=== PATIENT | male | born 1960 | race African-American/Black ===

== ENCOUNTER 2020-02-02 05:20 | Inpatient (IN) | payer OTHER, SELFPAY ==
[~2020-02-02] VITALS: Ht 182.9 cm; Wt 49.0 kg
[2020-02-02] MEDS ORDERED: NOREPINEPHRINE 4 MG/4 ML VIAL IV ONE (05:31)
[2020-02-02] MEDS ORDERED: SUCCINYLCHOLINE CHLORIDE 200 MG/10 ML VIAL IVP ONE ×2 (05:31→06:15)
[2020-02-02] MEDS ORDERED: ETOMIDATE 20 MG/10 ML VIAL IVP ONE ×2 (05:32→06:15)
[2020-02-02] MEDS ORDERED: PROPOFOL 1000 MG/100 ML PREMIX 100 ML IV ONE ×2 (05:35→06:15)
--- NOTE | 2020-02-02 05:35 | NUR ---
RIGHT 20 GAUGE PLACED
--- NOTE | 2020-02-02 05:35 | NUR ---
59 Y/O MALE [facility] . PER EMS UNABLE TO OBTAIN PULSE OX READING AND PT BP 66/32mmHG. OBSERVED PT GASPING FOR BREATH, MUMBLING SPEECH . RR EVEN AND LABORED. DIMINISHED LUNG SOUNDS THROUGHOUT. GCS 11. SKIN PALE , COLD TO TOUCH . OBSERVED WOUNDS ON BL HEELS , RT ANKLE AND SACRUM. OBSERVED JUGULAR DISTENTION. CAP REFIL > 3 SEC. PT POOR HISTORIAN. ERMD , RT AND EMT AT BEDSIDE. PMH: PER EMS CHF, CANCER & DM NKA
--- NOTE | 2020-02-02 05:48 | NUR ---
LEFT FOREARM 20 GAUGE PLACED
--- NOTE | 2020-02-02 05:48 | NUR ---
20GM OF ETOMIDATE GIVEN Addendum: 02/02/20 at 0611 by MEDDI 20 MG OF ETOMIDATE
--- NOTE | 2020-02-02 05:49 | NUR ---
100 MG SUCCS GIVEN
--- NOTE | 2020-02-02 05:50 | NUR ---
PATIENT INTUBATED 7.0; 23 CM AT THE LIP
--- NOTE | 2020-02-02 05:59 | NUR ---
SEE LEVOPHED IV SPEADSHEET FOR UPDATED VITAL SIGNS.
[2020-02-02] MEDS ORDERED: NOREPINEPHRINE 4 MG in DEXTROSE 5% 250 ML IV ONE (06:00)
--- NOTE | 2020-02-02 06:00 | NUR ---
LEVOPHED AT 2MCG GIVEN
--- NOTE | 2020-02-02 06:00 | NUR ---
PT REPOSITIONED FOR COMFORT. +CMS . NO ACUTE DISTRESS NOTED.
--- NOTE | 2020-02-02 06:00 | NUR ---
LEVOPHED AT 4 MCG INCREASED
--- NOTE | 2020-02-02 06:10 | NUR ---
LEVOPHED AT 6MCG INCREASED
--- NOTE | 2020-02-02 06:12 | NUR ---
OG TUBE PLACED
[2020-02-02] MEDS ORDERED: PIPERACILLIN/TAZOBACTAM 3.375 GM in DEXTROSE 5% 50 ML IV ONE (06:15)
[2020-02-02] MEDS ORDERED: AZITHROMYCIN 500 MG in DEXTROSE 5% 250 ML IV ONE (06:15)
[2020-02-02] MEDS ORDERED: VANCOMYCIN PER PHARMACY MC PRN ×2 (06:15→22:35)
[2020-02-02] MEDS ORDERED: VANCOMYCIN 1GM/DEXT 5% PREMIX 200 ML IV ONE (06:15)
--- NOTE | 2020-02-02 06:30 | NUR ---
# 14 FR Becerra catheter with 10 ml utilizing sterile technique. Immediate return of 20 ml YELLOW urine noted. Bedside drainage bag placed below level of bladder. Urine sample collected and sent to lab. Pt tolerated procedure WELL.
--- NOTE | 2020-02-02 06:30 | NUR ---
URINE SAMPLE COLLECTED FROM GILLIS BAG AND HANDED TO LAB.
[2020-02-02] MEDS ORDERED: CALCIUM GLUCONATE 10% 1000 MG/10 ML VIAL IVP ONE (06:35)
[2020-02-02 06:42] VITALS: BP 88/59
--- NOTE | 2020-02-02 06:42 | NUR ---
CALLED TO ER FOR A ROUND. PT WAS SUCCESSFULLY INTUBATED WITH 7.0 AND SECURED WITH ANCHOR-FAST @23CM AT LIP BY ANGELINA SEPULVEDA. PER DR. VALLADARES, PLACED PT ON VENT SETTINGS AC/VC 20, 450, +8, 100%. PEAK PREASURE 31 AND PLT 25 cmH20. PER KEREN ABG IN 30MINS. REPORT GIVEN TO AM SHIFT.
--- NOTE | 2020-02-02 06:42 | NUR ---
REC'D PT ON PB840 VENT SETTINGS AC 20 VT450 P8 FIO2 100% ALARMS ON AND AUDIBLE AND BVM AT HOB VENT IS PLUGGED INTO RED OUTLET B\S ARE DIMINISHED BILATERALLY, SXN PT SMALL AMT OF CREAM COLOR SECRETIONS, PT IS ORALLY INTUBATED WITH 7.0 ETT SECURED AT 23 CM PT IS NOT AWAKE AT THIS TIME,
[2020-02-02] MEDS ORDERED: NACL 0.9% 1,000 ML IV ONE (06:45)
--- NOTE | 2020-02-02 07:05 | NUR ---
DONNIE COVID, NOVEL COVID , FLU AND RSV SWABS COLLECTED AND HANDED TO LAB.
--- NOTE | 2020-02-02 07:15 | NUR ---
LEVOPHED INCREASED TO 10 MCG/MIN
--- NOTE | 2020-02-02 07:21 | NUR ---
LAB AT BEDSIDE. PER RENTAL SALES REPRESENTATIVE , UNABLE TO DRAW LABS DUE TO SLOW FLOW AT THIS TIME. WILL TRY AGAIN.
[2020-02-02] MEDS ORDERED: DEXTROSE 50% 50 ML SYR IVP STA ×2 (07:24→07:48)
[2020-02-02] MEDS ORDERED: SODIUM BICARBONATE 8.4% PFS 50 MEQ/50 ML SYR IVP STA ×2 (07:24→08:34)
[2020-02-02] MEDS ORDERED: INSULIN REGULAR, HUMAN 100 UNIT/ML VIAL IVP STA (07:24)
[2020-02-02 07:42] LABS: HEMATOCRIT 33.5 % (36-52); HEMOGLOBIN 10.4 g/dL (12.0-18.0); MEAN CORPUSCULAR HGB CONC 31 g/dL (33-37); RED BLOOD CELL COUNT(AUTO) 3.95 MIL/uL (4.20-6.10)
[2020-02-02 07:44] LABS: MEAN CORPUSCULAR HEMOGLOBIN 26 pg (27-31); MEAN CORPUSCULAR VOLUME 84.8 fL (80-94); PLATELET COUNT (AUTO) 141 K/uL (140-450); RED CELL DISTRIBUTION WIDTH 15.7 % (11.6-13.7); WHITE BLOOD COUNT (AUTO) 6.5 K/uL (4.8-10.8)
[2020-02-02] MEDS ORDERED: SODIUM BICARBONATE 8.4% PFS 50 MEQ/50 ML SYR IVP ONE ×2 (07:45→13:55)
[2020-02-02] MEDS ORDERED: CALCIUM CHLORIDE 10% 1,000 MG in NACL 0.9% 100 ML IV ONE (07:45)
[2020-02-02] MEDS ORDERED: MIDAZOLAM MDV 50 MG in NACL 0.9% 40 ML IV PRN (07:45)
--- NOTE | 2020-02-02 07:54 | NUR ---
ABG DRAWN ON LB WITHOUT INCIDENT AND RESULTS WERE GIVEN TO AND CHANGES MADE TO VENT RR TO 22 AND FIO2 TO 50%
[2020-02-02 07:55] LABS: APPEARANCE,URINE CLOUDY (CLEAR); BILIRUBIN,URINE NEGATIVE (NEGATIVE); BLOOD, URINE 2+ (NEGATIVE); COLOR,URINE DARK YELLOW (YELLOW); LEUKOCYTE ESTERASE ,URINE NEGATIVE (NEGATIVE); NITRITE, URINE NEGATIVE (NEGATIVE); UGLUCOSE NEGATIVE (NEGATIVE)
[2020-02-02] MEDS ORDERED: MIDAZOLAM MDV 100 MG in NACL 0.9% 80 ML IV PRN (08:00)
--- NOTE | 2020-02-02 08:00 | NUR ---
PT REPOSITIONED FOR COMFORT. +CMS . NO ACUTE DISTRESS NOTED.
[2020-02-02] MEDS ORDERED: ASPIRIN 81 MG TAB.CHEW NG STA (08:12)
--- NOTE | 2020-02-02 08:15 | NUR ---
VERSED DRIP INITIATED AT 1MG/HR
[2020-02-02] MEDS ORDERED: CRUSHER, PILL MC ONE (08:16)
[2020-02-02 08:19] LABS: LYMPHOCYTES % (MANUAL) 4 % (20-46); MONOCYTES % (MANUAL) 7 % (5-12)
[2020-02-02 08:27] LABS: RSV NEGATIVE (NEGATIVE)
[2020-02-02 08:30] LABS: ALBUMIN 3.2 g/dL (3.4-5.0); ANION GAP 30.2 (8-16); CARBON DIOXIDE 17.9 mmol/L (21-32); CREATININE 3.2 mg/dL (0.6-1.3); TOTAL BILIRUBIN 2.5 mg/dL (0.0-1.0)
--- NOTE | 2020-02-02 08:30 | NUR ---
INCREASED VERSED DRIP TO 2MG/HR , RAAS -2.
[2020-02-02 08:34] LABS: POTASSIUM 8.1 mmol/L (3.5-5.1)
[2020-02-02 08:37] LABS: PHOSPHORUS 7.5 mg/dL (2.5-4.9)
[2020-02-02 08:38] LABS: SALICYLATE < 2.8 mg/dL (2.8-20.0)
[2020-02-02 08:52] LABS: LACTATE DEHYDROGENASE 673 U/L (85-227)
--- NOTE | 2020-02-02 08:58 | NUR ---
PER DAVID DODSON - DO NOT ADMINISTER ORDERED ANTIBIOTICS AT THIS TIME.
--- NOTE | 2020-02-02 08:58 | NUR ---
PER ERMD - HOLD OFF OF CT SCANS AT THIS TIME.
--- NOTE | 2020-02-02 09:00 | NUR ---
WOUND CARE AND PICTURES DOCUMENTED AT THIS TIME. PT TOLERATED PROCEDURE WELL.
--- NOTE | 2020-02-02 09:00 | NUR ---
INCREASED VERSED DRIP TO 3MG/HR , RAAS -3.
[2020-02-02 09:04] LABS: D-DIMER 1230 ng/ml (0-400)
[2020-02-02 09:05] LABS: ACETAMINOPHEN < 0.5 ug/ml (10-30)
[2020-02-02 09:09] LABS: C-REACTIVE PROTEIN QUANT 4.9 mg/dL (0.0-0.9)
[2020-02-02 09:19] LABS: RBC,URINE 11-20 (MOD) /HPF (0-5); WBC,URINE 0-5 /HPF (0-5)
--- NOTE | 2020-02-02 10:00 | NUR ---
PT REPOSITIONED FOR COMFORT. +CMS . NO ACUTE DISTRESS NOTED.
[2020-02-02 10:07] LABS: FIBRINOGEN 228 mg/dL (200-400)
[2020-02-02] MEDS ORDERED: ALBUTEROL SULFATE/IPRATROPIU 3 ML SOL IH PRN ×2 (10:20)
[2020-02-02] MEDS ORDERED: NACL 0.9% 1,000 ML IV SCH (10:20)
[2020-02-02] MEDS ORDERED: ACETAMINOPHEN 325 MG TAB PO PRN (10:20)
[2020-02-02] MEDS ORDERED: HYDROcodone/APAP 7.5/325 MG 1 TAB PO PRN (10:20)
[2020-02-02] MEDS ORDERED: ONDANSETRON 4 MG/2 ML VIAL IM/IVP PRN (10:20)
[2020-02-02] MEDS ORDERED: DOCUSATE SODIUM 100 MG GELCAP PO PRN (10:20)
--- NOTE | 2020-02-02 10:30 | NUR ---
CENTRAL LINE INSERTION ADMINISTERED BY DR. DODSON. PROCEDURE TOLERATED WELL BY PT.
[2020-02-02 10:50] VITALS: BP 100/65
--- NOTE | 2020-02-02 10:53 | NUR ---
ASSUMED CARE OF PATIENT FROM ANTONIO QUICK.
[2020-02-02] MEDS: ALBUTEROL SULFATE/IPRATROPIU 3 ML SOL IH SCH ×3 (11:00→23:00)
--- NOTE | 2020-02-02 11:00 | NUR ---
REPORT GIVEN TO ANTONIO LLAMAS FOR CONTINUATION OF CARE.
[2020-02-02] MEDS ORDERED: POTASSIUM CHLORIDE 20% 40 MEQ/15 ML UDC PO PRN (11:10)
--- NOTE | 2020-02-02 11:11 | NUR ---
Dr. Connell is evaluating the patient.
[2020-02-02 11:25] LABS: BARBITURATE, URINE NEGATIVE ng/ml (NEG <=200); BENZODIAZEPINE, URINE NEGATIVE ng/mL (NEG <=200); CANNABINOID, URINE NEGATIVE ng/mL (NEG <=50); COCAINE, URINE NEGATIVE ng/mL (NEG <=300); PHENCYCLIDINE SCREEN,URINE NEGATIVE ng/mL (NEG <=25)
[2020-02-02 11:26] LABS: OPIATE, URINE NEGATIVE ng/mL (NEG <=2000)
[2020-02-02] MEDS ORDERED: ALBUTEROL SULFATE/IPRATROPIU 3 ML SOL IH SCH (13:00)
--- NOTE | 2020-02-02 13:24 | NUR ---
The patient's brother, Tate Florentino, should be contacted at from 02/02/2020 1830 until further notice for any additional needs.
[2020-02-02 13:34] LABS: PROTHROMBIN TIME > 120.0 secs (10.8-13.4)
[2020-02-02] MEDS ORDERED: CALCIUM CHLORIDE 10% 100 MG/ML SYR IVP ONE (13:55)
[2020-02-02 15:33] VITALS: BP 97/72
[2020-02-02] MEDS ORDERED: SODIUM ZIRCONIUM CYCLOSILICATE 10 GM POWD.PACK NG SCH (15:45)
--- NOTE | 2020-02-02 16:00 | NUR ---
DIALYSIS NURSE AT BEDSIDE
[2020-02-02] MEDS: DEXT 5% /NACL 0.9% 1,000 ML IV SCH (16:30)
--- NOTE | 2020-02-02 16:47 | NUR ---
REPORT RECEIVED FROM MURIEL ALVAREZ FOR CONTINUITY OF CARE
--- NOTE | 2020-02-02 16:48 | NUR ---
PT RECEIVING DIALYSIS AT THIS TIME. VSS.
[2020-02-02] MEDS: BLOOD GLUCOSE MONITORING 1 DEV DEV FS SCH (17:07)
--- NOTE | 2020-02-02 17:52 | NUR ---
1600ML TAKEN OUT DURING DIALYSIS
--- NOTE | 2020-02-02 18:00 | NUR ---
MD SERNA PAGED REGARDING PATIENTS RYTHM, PATIENT IS EXPERIENCING VTACH AT THIS TIME
--- NOTE | 2020-02-02 18:50 | NUR ---
PT IN UNSTABLE CONDITION, CRASH CART AT BEDSIDE, PT CONNECTED TO DEFIB.
--- NOTE | 2020-02-02 18:51 | NUR ---
ADVISED TO CONTACT MD CHAVARRIA, EKG PERFORMED AND SENT TO MD CHAVARRIA. PULSES PALPABLE +4.
[2020-02-02 18:59] LABS: CHOL/HDL RATIO 1.5 (1-4.5); FREE T4 (FREE THYROXINE) 1.54 ng/dL (0.76-1.46); MAGNESIUM 1.8 mg/dL (1.8-2.4); PHOSPHORUS 6.5 mg/dL (2.5-4.9); THYROID STIMULATING HORMONE 3.78 uIU/mL (0.34-3.74)
[2020-02-02] MEDS ORDERED: BUDESONIDE 0.5 MG/2 ML NEBU INH SCH (19:30)
--- NOTE | 2020-02-02 19:30 | NUR ---
RECEIVED REPORT FROM ANTONIO WHITE FOR CONTINUATION OF CARE.
--- NOTE | 2020-02-02 19:44 | NUR ---
PT IS CONNECTED TO THE SUGARCANE PLANTER. PT IS CONNECTED TO THE SUGARCANE PLANTER. ADMIT MD AWARE OF PT SUSTAINING VTACH. MARINE ENGINE DRIVER HAS BEEN MADE AWARE. WILL CONTINUE TO MONITOR.
--- NOTE | 2020-02-02 19:46 | NUR ---
CALLED THE PERSON TO NOTIFY IN THE PTS [id number] PERRY [phone]. LEFT A MESSAGE REQUESTING THAT SHE CALL [facility] ER BACK.
[2020-02-02 20:30] VITALS: BP 93/69
--- NOTE | 2020-02-02 20:45 | NUR ---
PT IS CONNECTED TO THE ROUTE INSPECTOR. PT IS CONNECTED TO THE ROUTE INSPECTOR. ADMIT MD AWARE OF PT SUSTAINING VTACH. PT IS CONNECTED TO THE DEFIBRILLATOR PADS AND THE CRASH CART IS AT BEDSIDE. WILL CONTINUE TO MONITOR.
--- NOTE | 2020-02-02 21:45 | NUR ---
PT IS CONNECTED TO THE BASEBALL COACH. ADMIT MD AWARE OF PT SUSTAINING VTACH. PT IS CONNECTED TO THE DEFIBRILLATOR PADS AND THE CRASH CART IS AT BEDSIDE. BED IS LOCKED AND IN LOWEST POSITION. SIDE RAILSX1. FLUIDS RUNNING PER MD ORDERS. WILL CONTINUE TO MONITOR.
--- NOTE | 2020-02-02 22:45 | NUR ---
PT IS CONNECTED TO THE NUT PROCESS HELPER. ADMIT MD AWARE OF PT SUSTAINING VTACH. PT IS CONNECTED TO THE DEFIBRILLATOR PADS AND THE CRASH CART IS AT BEDSIDE. BED IS LOCKED AND IN LOWEST POSITION. SIDE RAILSX1. FLUIDS RUNNING PER MD ORDERS. WILL CONTINUE TO MONITOR.
[2020-02-02] MEDS ORDERED: VANCOMYCIN 1GM/DEXT 5% PREMIX 200 ML IV SCH (22:50)
[2020-02-02 23:25] VITALS: BP 93/65
--- NOTE | 2020-02-02 23:45 | NUR ---
PT IS CONNECTED TO THE ROLL UP GUIDER OPERATOR. ADMIT MD AWARE OF PT SUSTAINING VTACH. PT IS CONNECTED TO THE DEFIBRILLATOR PADS AND THE CRASH CART IS AT BEDSIDE. BED IS LOCKED AND IN LOWEST POSITION. SIDE RAILSX1. FLUIDS RUNNING PER MD ORDERS. WILL CONTINUE TO MONITOR.
[2020-02-03] VITALS (8 sets, daily range): BP systolic 75–96; BP diastolic 52–68
--- NOTE | 2020-02-03 00:45 | NUR ---
PT IS CONNECTED TO THE PERIOPERATIVE NURSE. ADMIT MD AWARE OF PT SUSTAINING VTACH. PT IS CONNECTED TO THE DEFIBRILLATOR PADS AND THE CRASH CART IS AT BEDSIDE. PT IS CONNECTED TO THE MECHANICAL VENTILATOR. SAO2@100%. BED IS LOCKED AND IN LOWEST POSITION. SIDE RAILSX1. FLUIDS RUNNING PER MD ORDERS. WILL CONTINUE TO MONITOR.
[2020-02-03] MEDS ORDERED: NOREPINEPHRINE 4 MG/4 ML VIAL IV ONE ×4 (01:13→20:29)
--- NOTE | 2020-02-03 01:45 | NUR ---
PT IS CONNECTED TO THE AIRPLANE FLIGHT ATTENDANT. ADMIT MD AWARE OF PT SUSTAINING VTACH. PT IS CONNECTED TO THE DEFIBRILLATOR PADS AND THE CRASH CART IS AT BEDSIDE. PT IS CONNECTED TO THE MECHANICAL VENTILATOR. SAO2@100%. BED IS LOCKED AND IN LOWEST POSITION. SIDE RAILSX1. FLUIDS RUNNING PER MD ORDERS. WILL CONTINUE TO MONITOR.
[2020-02-03] MEDS: DEXTROSE 50% 50 ML SYR IVP PRN ×3 (01:48→16:27)
[2020-02-03] MEDS: BLOOD GLUCOSE MONITORING 1 DEV DEV FS SCH ×5 (02:18→21:00)
--- NOTE | 2020-02-03 02:45 | NUR ---
PT IS CONNECTED TO THE ENTRY EXAMINER. ADMIT MD AWARE OF PT SUSTAINING VTACH. PT IS CONNECTED TO THE DEFIBRILLATOR PADS AND THE CRASH CART IS AT BEDSIDE. PT IS CONNECTED TO THE MECHANICAL VENTILATOR. SAO2@100%. BED IS LOCKED AND IN LOWEST POSITION. SIDE RAILSX1. FLUIDS RUNNING PER MD ORDERS. WILL CONTINUE TO MONITOR.
[2020-02-03] MEDS ORDERED: PHENYLEPHRINE 10 MG in NACL 0.9% 250 ML IV PRN (02:50)
[2020-02-03] MEDS ORDERED: PHENYLEPHRINE 10 MG/ML VIAL ONE ×9 (02:57→22:22)
[2020-02-03] MEDS: ALBUTEROL SULFATE/IPRATROPIU 3 ML SOL IH SCH ×6 (03:00→23:18)
--- NOTE | 2020-02-03 03:30 | NUR ---
RECIEVED REPORT FROM ANTONIO JUDD.
--- NOTE | 2020-02-03 03:30 | NUR ---
AARON SYNEPHRINE TIRTRATED TO 100MCG/MIN.
--- NOTE | 2020-02-03 03:30 | NUR ---
PT IS CONNECTED TO THE PRINTER HELPER. ADMIT MD AWARE OF PT SUSTAINING VTACH. PT IS CONNECTED TO THE DEFIBRILLATOR PADS AND THE CRASH CART IS AT BEDSIDE. PT IS CONNECTED TO THE MECHANICAL VENTILATOR. SAO2@100%. BED IS LOCKED AND IN LOWEST POSITION. SIDE RAILSX1. FLUIDS RUNNING PER MD ORDERS. WILL CONTINUE TO MONITOR.
[2020-02-03] MEDS: PHENYLEPHRINE 10 MG in NACL 0.9% 250 ML IV PRN ×3 (03:48→07:58)
--- NOTE | 2020-02-03 04:00 | NUR ---
AARON SYNEPHRINE TITRTAED TO 150MCG/MIN. BP STILL LOW AT 74/50.
[2020-02-03] MEDS ORDERED: PIPERACILLIN/TAZOBACTAM 2.25 GM VIAL IV ONE ×3 (04:12→20:47)
--- NOTE | 2020-02-03 04:30 | NUR ---
PT MAX OUT OF AARON SYNEPHRINE.
[2020-02-03] MEDS: PIPERACILLIN/TAZOBACTAM 2.25 GM in DEXTROSE 5% 50 ML IV SCH ×4 (05:00→21:00)
--- NOTE | 2020-02-03 05:30 | NUR ---
PT DOSE OF ZOYSN FROM 223 BARELY ADMINISTERED
[2020-02-03] MEDS ORDERED: VANCOMYCIN 1,000 MG VIAL ONE (06:03)
--- NOTE | 2020-02-03 06:51 | NUR ---
PATIENT HAS BEEN SCREENED AND CATEGORIZED HIGH NUTRITION RISK. PATIENT WILL BE SEEN WITHIN 1-2 DAYS OF ADMISSION. 02/03/20 - 02/04/20 SAMSON GUO MBA, RD
[2020-02-03] MEDS: BUDESONIDE 0.25 MG/2 ML NEBU INH SCH ×2 (07:30→20:00)
--- NOTE | 2020-02-03 07:30 | NUR ---
RECIEVED REPORT FROM ANTONIO PRICE.
[2020-02-03] MEDS: NOREPINEPHRINE 8 MG in DEXTROSE 5% 250 ML IV PRN (07:57)
--- NOTE | 2020-02-03 08:00 | NUR ---
BREATHING TX OMITTED DUE TO HIGHER CLINICAL PRIORITY, IN CODE BLUE.
--- NOTE | 2020-02-03 08:00 | NUR ---
PT RAAS -3. SEE TITRATION SPREADSHEET. PT MAXED ON NEOSYNEPHRINE AND LEVOPHED.
[2020-02-03 09:12] LABS: BASOPHILS % (AUTO) 0.2 % (0.0-2.0); HEMATOCRIT 31.8 % (36-52); LYMPHOCYTES # (AUTO) 0.1 K/uL (2.0-11.5); MEAN CORPUSCULAR HEMOGLOBIN 26 pg (27-31); MEAN CORPUSCULAR HGB CONC 31 g/dL (33-37); MEAN CORPUSCULAR VOLUME 82.3 fL (80-94); MONOCYTES # (AUTO) 0.3 K/uL (0.8-1.0); MONOCYTES % (AUTO) 2.9 % (1.7-9.3); NEUTROPHILS # (AUTO) 11.5 K/uL (1.8-7.7); NEUTROPHILS % (AUTO) 95.9 % (42.2-75.2); PLATELET COUNT (AUTO) 99 K/uL (140-450); RED BLOOD CELL COUNT(AUTO) 3.86 MIL/uL (4.20-6.10); RED CELL DISTRIBUTION WIDTH 15.7 % (11.6-13.7)
[2020-02-03 09:35] LABS: ANION GAP 17.1 (8-16); CARBON DIOXIDE 25.5 mmol/L (21-32); CREATININE 3.5 mg/dL (0.6-1.3); POTASSIUM 4.6 mmol/L (3.5-5.1)
--- NOTE | 2020-02-03 09:43 | NUR ---
CRITICAL LABS ENDORSED TO ANTONIO ANDERSON
[2020-02-03 09:46] LABS: PHOSPHORUS 4.9 mg/dL (2.5-4.9)
--- NOTE | 2020-02-03 10:00 | NUR ---
PT POSITIONED FOR COMFORT. TALENT DEVELOPMENT DIRECTOR/ PULSE OX IN PLACE. CRASH CART AT BEDSIDE FROM PREVIOUS CODE, DEFIB PLADS IN PLACE. EQUAL CHEST RISE AND FALL. BED LOCKED AND IN LOWEST POSITION. SIDE RAILS X2.
[2020-02-03] MEDS: PROPOFOL 1000 MG/100 ML PREMIX 100 ML IV PRN (10:02)
--- NOTE | 2020-02-03 11:45 | NUR ---
PT BLOOD SUGAR 51, PRN ABBOJECT ADMINISTERED.
--- NOTE | 2020-02-03 11:48 | NUR ---
SOCIAL WORK NOTE: SW WAS UNABLE TO MEET PATIENT AT BEDSIDE DUE TO MEDICAL CONDITIONS. SW LEFT WITH PATIENT'S SISTER [phone] TO COMPLETE ASSESSMENT.
--- NOTE | 2020-02-03 12:01 | NUR ---
RT AT BEDSIDE
--- NOTE | 2020-02-03 12:09 | NUR ---
PTS BS IS NOW 246 POST PRN ABBOJECT
--- NOTE | 2020-02-03 13:59 | NUR ---
PT POSITIONED FOR COMFORT. CONTROLLER INSTRUCTOR/ PULSE OX IN PLACE. CRASH CART AT BEDSIDE FROM PREVIOUS CODE, DEFIB PLADS IN PLACE. EQUAL CHEST RISE AND FALL. BED LOCKED AND IN LOWEST POSITION. SIDE RAILS X2.
[2020-02-03] MEDS: PHENYLEPHRINE 40 MG in NACL 0.9% 250 ML IV PRN (14:09)
[2020-02-03 14:19] LABS: T3 UPTAKE > 56 % (24 - 39); T4 (THYROXINE) 12.7 ug/dL (4.5 - 12.0)
[2020-02-03 14:24] LABS: MAGNESIUM 1.5 mg/dL (1.8-2.4)
--- NOTE | 2020-02-03 14:48 | NUR ---
blanket removed for 99.7 temporal temp
--- NOTE | 2020-02-03 15:08 | NUR ---
rt at bedside to sucction pt.
--- NOTE | 2020-02-03 16:00 | NUR ---
PT POSITIONED FOR COMFORT. DRUG PURCHASER/ PULSE OX IN PLACE. CRASH CART AT BEDSIDE FROM PREVIOUS CODE, DEFIB PLADS IN PLACE. EQUAL CHEST RISE AND FALL. BED LOCKED AND IN LOWEST POSITION. SIDE RAILS X2.
--- NOTE | 2020-02-03 16:13 | NUR ---
DC PLANNIN YRS OLD MALE PATIENT WAS ADMITTED FROM HOME WITH A DX OF ACUTE RESP FAILURE, CHF. PT HAS A HX OF CHF CANCER, AND DM. PT IS INTUBATED SEDATED. CXR SHOWED RT PLEURAL EFFUSION. CT HEAD NO EVIDENCED OF ACUTE INTRACRANIAL HEMORRHAGE. RAPID COVID TEST NEGATING PCR IS PENDING. CONSULTED WITH PULMO, NEPHRO AND DRILLING MACHINE RUNNER. DC PLAN PER PT RESPOND TO THE TREATMENT. CM TO FOLLOW Addendum: 02/06/20 at 1102 by Radha Rodrigues RN DC PLANNING: FAXED THE CLINICALS TO [facility] [phone] AND RECEIVED THE CONFIRMATION CM TO FOLLOW
[2020-02-03] MEDS: DEXT 5% /NACL 0.9% 1,000 ML IV SCH (16:28)
--- NOTE | 2020-02-03 16:32 | NUR ---
Leia dykes in [facility] - 02/03/20 at 1633 by [email or web address] shaniqua update to Tate mimsfield ([facility]) [phone]
--- NOTE | 2020-02-03 16:33 | NUR ---
gave update to Tate guido (brother) [phone]
--- NOTE | 2020-02-03 18:00 | NUR ---
PT POSITIONED FOR COMFORT. LEAD REFINERY SUPERVISOR/ PULSE OX IN PLACE. CRASH CART AT BEDSIDE FROM PREVIOUS CODE, DEFIB PLADS IN PLACE. EQUAL CHEST RISE AND FALL. BED LOCKED AND IN LOWEST POSITION. SIDE RAILS X2.
--- NOTE | 2020-02-03 18:45 | NUR ---
CALLED RT FOR PT DESAT TO 88%
--- NOTE | 2020-02-03 19:03 | NUR ---
RT AT BEDSIDE
--- NOTE | 2020-02-03 19:29 | NUR ---
REPORT RECEIVED FROM JUSTIN ALVAREZ FOR CONTINUITY OF CARE. SEDATED, RASS -3. PT ETT TO VENT. FIO2 50%, TV 450, RATE 22, PEEP 5. IV SITE HEYDI PICC LINE, PROPOFL 10 MCG/KG/MIN. LEVOPHED 30 MCG/MIN, NEOSYNEPHRINE 150 MCG/KG/MIN. R FEMORAL, DOUBLE LUMEN INFUSING D5NS AT 30 ML/HR. PT ON BILAT SOFT WRIST RESTRAINTS. OGT IN PLACE. GILLIS CATHETER IN PLACE. SAFETY PRECAUTIONS IN PLACE. WILL CONTINUE TO MONITOR.
--- NOTE | 2020-02-03 19:29 | NUR ---
REPORT GIVEN TO SYBIL ALVAREZ. TRANSFER OF CARE AT THIS TIME.
--- NOTE | 2020-02-03 20:55 | NUR ---
Note doins in EDM - 02/04/20 at 0106 by [email or web address] PT'S BLOOD PRESSURE IS CONSISTENTLY LOW. NOTIFIED DR CUADRA. ORDERS START DOBUTAMINE DRIP. STARTED AT 2.5 MCG/KG/MIN. DRY WEIGHT 49.8KG.
--- NOTE | 2020-02-03 21:37 | NUR ---
PAGED DR CUADRA FOR LOW BP.
[2020-02-03] MEDS: DOBUTamine 500 MG/D5W PREMIX 250 ML IV SCH (22:00)
--- NOTE | 2020-02-03 22:00 | NUR ---
PT'S BLOOD PRESSURE IS CONSISTENTLY LOW. NOTIFIED DR CUADRA. ORDERS START DOBUTAMINE DRIP. STARTED AT 2.5 MCG/KG/MIN. DRY WEIGHT 49.8KG.
[2020-02-04] VITALS (28 sets, daily range): BP systolic 62–127; BP diastolic 23–89
--- NOTE | 2020-02-04 | NUR ---
PT SEDATED, RASS -3. PT ETT TO VENT. RESPIRAITONS EVEN AND UNLABORED. CHEST RISE IS SYMMETRICAL. WILL CONTINUE TO MONITOR.
[2020-02-04] MEDS ORDERED: NOREPINEPHRINE 4 MG/4 ML VIAL IV ONE (01:59)
--- NOTE | 2020-02-04 02:24 | NUR ---
LUNCH RELIEF FOR PRIMARY NURSE --- NEW LEVOPHED BAG STARTED AT THIS TIME.
--- NOTE | 2020-02-04 02:30 | NUR ---
PT BP 88/55 - DOBUTAMINE DRIP INCREASED TO 24.63 ML/HR.
[2020-02-04] MEDS ORDERED: PHENYLEPHRINE 10 MG/ML VIAL ONE (03:27)
[2020-02-04] MEDS: ALBUTEROL SULFATE/IPRATROPIU 3 ML SOL IH SCH ×4 (03:58→23:25)
[2020-02-04] MEDS: PHENYLEPHRINE 40 MG in NACL 0.9% 250 ML IV PRN ×4 (04:08→19:00)
--- NOTE | 2020-02-04 04:45 | NUR ---
Patient will be admitted to care of DR CHEW. Admited to ICU - OVERFLOW. Will go to room 131A. Belongings list completed. Report to LINA ALVAREZ.
[2020-02-04] MEDS: PIPERACILLIN/TAZOBACTAM 2.25 GM in DEXTROSE 5% 50 ML IV SCH ×3 (05:00→21:05)
[2020-02-04] MEDS ORDERED: PIPERACILLIN/TAZOBACTAM 2.25 GM VIAL IV ONE (05:27)
--- NOTE | 2020-02-04 05:45 | NUR ---
RECEIVED REPORT FROM ED NURSE; PT OBTUNDED, NON PURPOSEFUL MOVEMENTS TO BILATERAL ARMS, ETT TO VENT ON 40% fio2, V PACED 110-120 BP 59/30, ON DOBUTAMINE @ 20 MCG/KG/MIN, LEVOPHED @ 30 MCG MIN, NEOSYNEPHRINE @ 150 MCG/MIN. PROPOFOL @ 20 MCG/KG,MIN. +1 THREADY PERIPHERAL PULSES, SKIN WARM DRY, NON INTACT. PICC TO R UPPER ARM, HD CATH DUAL LUMEN TO R FEMORAL. RESTRAINTS IN PLACE. BED LOCKED LOWEST POSITION
--- NOTE | 2020-02-04 05:50 | NUR ---
PROPOFOL ON HOLD, WILL CONTINUE TO OBSERVE, RR 24, SPO2 100% BP 72/45 HR 115 VPACED.
[2020-02-04] MEDS ORDERED: CRUSHER, PILL MC ONE (05:53)
--- NOTE | 2020-02-04 06:00 | NUR ---
RECTAL TEMP 102.5, TYLENOL GIVEN VIA OGT, WILL CONTINUE TO OBSERVE.
[2020-02-04] MEDS: BLOOD GLUCOSE MONITORING 1 DEV DEV FS SCH ×4 (06:10→21:35)
[2020-02-04] MEDS: DOBUTamine 500 MG/D5W PREMIX 250 ML IV SCH ×3 (06:30→17:03)
--- NOTE | 2020-02-04 08:00 | NUR ---
RECEIVED PT REPORT FROM [facility] NURSE. PT SEDATED TO RASS -3. ETT TO VENT. FIO2: 40%, RATE: 24, PEEP: 5. LUNGS DIMINISHED UPPER AND LOWER BILATERALLY. S1S2 NOTED UPON AUSCULTATION. OG-TUBE IN PLACE, RESIDUAL: 0ML. BOWEL SOUNDS ACTIVE IN ALL 4 QUADRANTS. ABD SOFT, NON-DISTENDED. GILLIS DRAINING TO GRAVITY, DARK YELLOW-URINE NOTED. RT UPPER ARM PICC LINE RUNNING DOBUTAMINE 40 MCG/KG/MIN AND IVF @ 30ML/HR. RT FEMORAL DUAL LUMEN HD CATH RUNNING LEVOPHED 30 MCG/MIN AND NEOSENEPHRINE 150 MCG/MIN. LT AC PERIPHERAL IV SALINE LOCK. STAGE 2 ULCER TO LT BUTTOCKS. SKIN OTHERWISE INTACT. SAFETY PRECAUTIONS IN PLACE, BED LOW AND LOCKED, SIDE RAILS UP, HOB @ 30 DEGREES. WILL CONT TO MONITOR CLOSELY. Addendum: 02/05/20 at 1859 by Cande Flood RN RN PT HAS WOUND TO SACRAL AREA, RT HEEL, RT ANKLE, LEFT TOE. SEE WOUND DOCUMENTATION Addendum: 02/05/20 at 1900 by Cande Flood RN RN PT HAS WOUND TO SACRAL AREA, RT HEEL, RT ANKLE, LEFT TOE. SEE WOUND DOCUMENTATION
[2020-02-04 08:23] LABS: ANION GAP 18.7 (8-16); CARBON DIOXIDE 20.2 mmol/L (21-32); POTASSIUM 4.9 mmol/L (3.5-5.1)
[2020-02-04 08:26] LABS: CREATININE 4.1 mg/dL (0.6-1.3)
[2020-02-04 08:28] LABS: BASOPHILS % (AUTO) 0.3 % (0.0-2.0); HEMATOCRIT 27.3 % (36-52); HEMOGLOBIN 8.5 g/dL (12.0-18.0); LYMPHOCYTES # (AUTO) 0.1 K/uL (2.0-11.5); LYMPHOCYTES % (AUTO) 1.4 % (20.5-51.1); MEAN CORPUSCULAR HEMOGLOBIN 26 pg (27-31); MEAN CORPUSCULAR HGB CONC 31 g/dL (33-37); MEAN CORPUSCULAR VOLUME 83.6 fL (80-94); MONOCYTES # (AUTO) 0.4 K/uL (0.8-1.0); MONOCYTES % (AUTO) 4.3 % (1.7-9.3); NEUTROPHILS # (AUTO) 7.8 K/uL (1.8-7.7); PLATELET COUNT (AUTO) 60 K/uL (140-450); RED BLOOD CELL COUNT(AUTO) 3.26 MIL/uL (4.20-6.10); RED CELL DISTRIBUTION WIDTH 15.9 % (11.6-13.7); WHITE BLOOD COUNT (AUTO) 8.3 K/uL (4.8-10.8)
[2020-02-04] MEDS: BUDESONIDE 0.25 MG/2 ML NEBU INH SCH ×2 (09:10→21:42)
--- NOTE | 2020-02-04 09:39 | NUR ---
CALLED AND LEFT A MESSAGED FOR DR CHAVARRIA FOR REPORTING CRITICAL LAB: TROPONIN: 0.888
--- NOTE | 2020-02-04 10:36 | NUR ---
DR CHEW ON THE UNIT, PER DR CHEW, START GLUCERNA AT 10ML/HR WITH A GOAL OF 40ML/HR. FWF: 250 Q 6HR. RESIDUAL: >200 HOLD FEEDING <150 RESUME FEEDING
[2020-02-04] MEDS ORDERED: VANCOMYCIN 500 MG in NACL 0.9% 100 ML IV SCH (11:00)
[2020-02-04] MEDS: INSULIN LISPRO SLIDING SCALE 100 UNITS/ML VIAL SUBQ PRN ×3 (11:30→21:36)
[2020-02-04] MEDS: PROPOFOL 1000 MG/100 ML PREMIX 100 ML IV PRN (15:37)
[2020-02-04] MEDS: DEXT 5% /NACL 0.9% 1,000 ML IV SCH (15:42)
[2020-02-04] MEDS: NACL 0.9% 1,000 ML IV SCH (16:45)
--- NOTE | 2020-02-04 16:46 | NUR ---
BLOOD GLUCOSE CHECKED 503, DR CHEW NOTIFIED. ORDERED TO DC D5NS AND START IVF NS AT 100 ML/HR.
--- NOTE | 2020-02-04 17:26 | NUR ---
02/04/20 RD INITIAL ASSESSMENT COMPLETED PLEASE REFER TO NUTRITION ASSESSMENT UNDER CARE ACTIVITY FOR ESTIMATED NUTRITIONAL NEEDS. 1. RECOMMEND NEPRO 1.8 @ 35 ML/HR -THIS WILL PROVIDE 1512 KCAL AND 68 GM OF PROTEIN WHICH WILL MEET 100% OF ESTIMATED KCAL AND PROTEIN NEEDS. 2. RECOMMEND FLUSH OF [address] TO FOLLOW-UP 2-3 DAYS, HIGH RISK MIGUEL SNOW, RD
--- NOTE | 2020-02-04 17:50 | NUR ---
CHECKED B WILL CONT. TO MONITOR
[2020-02-04] MEDS: NOREPINEPHRINE 8 MG in DEXTROSE 5% 250 ML IV PRN ×2 (18:00→23:27)
--- NOTE | 2020-02-04 21:05 | NUR ---
REPORT GIVEN TO CANDACE ALVAREZ, FOR CONTINUITY OF CARE Addendum: 02/05/20 at 0331 by Rick Pearl RN ERROR WRONG CHART
[2020-02-05] VITALS (26 sets, daily range): BP systolic 55–139; BP diastolic 33–98
[2020-02-05] MEDS: BUDESONIDE 0.25 MG/2 ML NEBU INH SCH ×2 (00:46→07:14)
[2020-02-05] MEDS: ALBUTEROL SULFATE/IPRATROPIU 3 ML SOL IH SCH ×4 (02:14→20:00)
[2020-02-05] MEDS: NACL 0.9% 1,000 ML IV SCH ×3 (02:45→23:51)
[2020-02-05] MEDS: PIPERACILLIN/TAZOBACTAM 2.25 GM in DEXTROSE 5% 50 ML IV SCH ×3 (05:00→20:29)
[2020-02-05 07:11] LABS: BASOPHILS # (AUTO) 0.1 K/uL (0.00-0.22); BASOPHILS % (AUTO) 0.9 % (0.0-2.0); EOSINOPHILS % (AUTO) 0.1 % (0.0-4.0); HEMATOCRIT 33.7 % (36-52); HEMOGLOBIN 10.7 g/dL (12.0-18.0); LYMPHOCYTES # (AUTO) 0.1 K/uL (2.0-11.5); MEAN CORPUSCULAR HEMOGLOBIN 26 pg (27-31); MEAN CORPUSCULAR HGB CONC 32 g/dL (33-37); MONOCYTES # (AUTO) 0.5 K/uL (0.8-1.0); MONOCYTES % (AUTO) 6.3 % (1.7-9.3); NEUTROPHILS # (AUTO) 7.8 K/uL (1.8-7.7); NEUTROPHILS % (AUTO) 91.7 % (42.2-75.2); PLATELET COUNT (AUTO) 33 K/uL (140-450); RED BLOOD CELL COUNT(AUTO) 4.06 MIL/uL (4.20-6.10); RED CELL DISTRIBUTION WIDTH 15.7 % (11.6-13.7); WHITE BLOOD COUNT (AUTO) 8.5 K/uL (4.8-10.8)
[2020-02-05] MEDS: BLOOD GLUCOSE MONITORING 1 DEV DEV FS SCH ×4 (07:30→20:47)
[2020-02-05] MEDS: INSULIN LISPRO SLIDING SCALE 100 UNITS/ML VIAL SUBQ PRN ×2 (07:30→20:48)
[2020-02-05 07:31] LABS: ANION GAP 16.4 (8-16); CARBON DIOXIDE 19.8 mmol/L (21-32); CREATININE 3.7 mg/dL (0.6-1.3); POTASSIUM 4.2 mmol/L (3.5-5.1)
[2020-02-05] MEDS: PHENYLEPHRINE 40 MG in NACL 0.9% 250 ML IV PRN ×4 (08:00→23:13)
--- NOTE | 2020-02-05 08:00 | NUR ---
RECEIVED PT REPORT FROM NIGHTSHIFT NURSE. PT SEDATED TO RASS -3. ETT TO VENT. FIO2: 40%, RATE: 24, PEEP: 5. LUNGS DIMINISHED UPPER AND LOWER BILATERALLY. S1S2 NOTED UPON AUSCULTATION. OG-TUBE IN PLACE, RESIDUAL: 0ML. BOWEL SOUNDS ACTIVE IN ALL 4 QUADRANTS. ABD SOFT, NON-DISTENDED. GILLIS DRAINING TO GRAVITY, DARK YELLOW-URINE NOTED. RT UPPER ARM PICC LINE RUNNING DOBUTAMINE 40 MCG/KG/MIN AND IVF @ 100ML/HR, LEVOPHED 30 MCG/MIN AND NEOSENEPHRINE 150 MCG/MIN. LT AC PERIPHERAL IV RUNNING PROPOFOL. PT HAS RT FEMORAL DUAL LUMEN HD CATH. PT HAS WOUND TO SACRAL AREA, RT HEEL, RT ANKLE, LEFT TOE. SEE WOUND DOCUMENTATION, SCATTERED BRUISING. SAFETY PRECAUTIONS IN PLACE, BED LOW AND LOCKED, SIDE RAILS UP, HOB @ 30 DEGREES. WILL CONT TO MONITOR CLOSELY.
[2020-02-05] MEDS: NOREPINEPHRINE 8 MG in DEXTROSE 5% 250 ML IV PRN ×3 (09:58→22:33)
--- NOTE | 2020-02-05 10:00 | NUR ---
NO S/S OF DISTRESS NOTED, SAFETY MEASURES IN PLACE, SIDE RAILS UP, BED LOW AND LOCKED. WILL CONT. TO MONITOR.
[2020-02-05] MEDS: DOBUTamine 500 MG/D5W PREMIX 250 ML IV SCH ×3 (11:19→20:44)
--- NOTE | 2020-02-05 13:00 | NUR ---
DR FRAUSTO ON UNIT, ORDERED 25% ALBUMIN X2 @ 50 ML/HR. BEFORE HEMODIALYSIS TODAY.
--- NOTE | 2020-02-05 14:30 | NUR ---
PTS BROTHER CALLED, UPDATED ON PTS CONDITION.
[2020-02-05] MEDS ORDERED: ALBUMIN HUMAN 25% 100 ML IV SCH (15:00)
--- NOTE | 2020-02-05 15:30 | NUR ---
AUSCULTATED AND RESIDUAL 10ML. STARTED NEPRO 1.8 @ 10 ML/HR WITH A GOAL RATE OF 35 ML/HR. FWF: 150 Q 4 HR.
--- NOTE | 2020-02-05 19:45 | NUR ---
RECIEVED ENDORSEMENT FROM DAY SHIFT RN. PT SEDATED TO RASS -3. ETT TO VENT. FIO2: 40%, RATE: 22, PEEP: 5. LUNGS DIMINISHED UPON AUSCULTATION. OG-TUBE IN PLACE. BOWEL SOUNDS ACTIVE IN ALL 4 QUADRANTS. ABD SOFT, NON-DISTENDED. GILLIS DRAINING TO GRAVITY, DARK YELLOW-URINE NOTED. RT UPPER ARM PICC LINE RUNNING DOBUTAMINE, IVF, LEVOPHED AND NEOSENEPHRINE. LAC PERIPHERAL IV RUNNING PROPOFOL. PT HAS RT FEMORAL DUAL LUMEN HD CATH. PT HAS WOUND TO SACRAL AREA, RT HEEL, RT ANKLE, LEFT TOE. SEE WOUND ASSESSMENT, SAFETY MEASURES IN PLACE, BED LOW AND LOCKED, SIDE RAILS UP, HOB @ 30 DEGREES. WILL CONTINUE TO MONITOR CLOSELY.
[2020-02-06] VITALS (17 sets, daily range): BP systolic 38–105; BP diastolic 18–74
[2020-02-06] MEDS: DOBUTamine 500 MG/D5W PREMIX 250 ML IV SCH ×3 (00:57→09:28)
[2020-02-06] MEDS: ALBUTEROL SULFATE/IPRATROPIU 3 ML SOL IH SCH ×2 (01:50→06:54)
[2020-02-06] MEDS: PIPERACILLIN/TAZOBACTAM 2.25 GM in DEXTROSE 5% 50 ML IV SCH (04:40)
[2020-02-06] MEDS: PROPOFOL 1000 MG/100 ML PREMIX 100 ML IV PRN (04:42)
[2020-02-06] MEDS: NOREPINEPHRINE 8 MG in DEXTROSE 5% 250 ML IV PRN (04:43)
[2020-02-06] MEDS: PHENYLEPHRINE 40 MG in NACL 0.9% 250 ML IV PRN (04:50)
[2020-02-06] MEDS: BLOOD GLUCOSE MONITORING 1 DEV DEV FS SCH ×2 (06:35→11:30)
[2020-02-06] MEDS: INSULIN LISPRO SLIDING SCALE 100 UNITS/ML VIAL SUBQ PRN (06:36)
[2020-02-06] MEDS: BUDESONIDE 0.25 MG/2 ML NEBU INH SCH (06:54)
--- NOTE | 2020-02-06 08:12 | NUR ---
ENDORSED TO DAY SHIFT RN FOR CONTINUITY OF CARE
[2020-02-06] MEDS: NACL 0.9% 1,000 ML IV SCH (08:45)
--- NOTE | 2020-02-06 12:53 | NUR ---
DR CHEW AWARE OF LOW BP 55/42 HR 60 PACED, O2SAT 80%
--- NOTE | 2020-02-06 13:31 | NUR ---
CODE TINA CALLED FOR HR 40, NO PULSE DETECTED BY PALP, CODE TINA CALLED, SEE CODE BLUE SHEET.
--- NOTE | 2020-02-06 13:31 | NUR ---
RODDY WILDER CALLED CPR STARTED AND BAGGED PT WITH 100% FIO2 BY [facility] ER DR. JOHNS AT BEDSIDE AND CODE WAS ENDED AT [address] JOHNS
--- NOTE | 2020-02-06 13:40 | NUR ---
TIME OF 1340, PRONOUNCED BY DR JOHNS.
--- NOTE | 2020-02-06 13:50 | NUR ---
HUSSAIN CRUZ CALLED TO NOTIFY THE OF PATIENT, POST MORTEM PROCESS EXPLAINED, NUMBER OF [employer] OFFERED.
--- NOTE | 2020-02-06 14:36 | NUR ---
HIGHBALLER KARSTEN DICKENS CALLED BACK, CASE REVIEWED, OK TO RELEASE BODY TO MORTUARY.
--- NOTE | 2020-02-06 14:36 | NUR ---
[facility] NOT[facility] OF PT, RAND SEWER WILL CALL BACK FOR REPORT PER FAREED.
--- NOTE | 2020-02-06 15:11 | NUR ---
[facility] - NOT CANDIDATE FOR ORGAN DONATION PER T.L.
[2020-02-07] MEDS ORDERED: NOREPINEPHRINE 4 MG/4 ML VIAL IV ONE (00:49)
== END 2020-02-06 13:40 | DRG 133 ==
LOC: EDBD 05:20 → MED 05:20 → MTU 10:36 → MMU 02-04 03:45
PROVIDERS: ADMIT Emergency Medicine; ATTEND Emergency Medicine
PROC: 5A1945Z Respiratory Ventilation, 24-96 Consecutive Hours (ICD-10-PCS; principal; 2020-02-02)
PROC: 0BH17EZ Insertion of Endotracheal Airway into Trachea, Via Natural or Artificial Opening (ICD-10-PCS; 2020-02-02)
PROC: 5A1D70Z Performance of Urinary Filtration, Intermittent, Less than 6 Hours Per Day (ICD-10-PCS; 2020-02-02)
PROC: 5A1D70Z Performance of Urinary Filtration, Intermittent, Less than 6 Hours Per Day (ICD-10-PCS; 2020-02-03)
PROC: 5A1D70Z Performance of Urinary Filtration, Intermittent, Less than 6 Hours Per Day (ICD-10-PCS; 2020-02-04)
DX: J96.01 Acute respiratory failure with hypoxia (principal); R57.0 Cardiogenic shock; N18.6 End stage renal disease; D68.9 Coagulation defect, unspecified; I50.9 Heart failure, unspecified; E11.22 Type 2 diabetes mellitus with diabetic chronic kidney disease; N17.0 Acute kidney failure with tubular necrosis; J91.8 Pleural effusion in other conditions classified elsewhere; E87.5 Hyperkalemia; I42.8 Other cardiomyopathies; E83.39 Other disorders of phosphorus metabolism; J69.0 Pneumonitis due to inhalation of food and vomit; E11.649 Type 2 diabetes mellitus with hypoglycemia without coma; Z20.828 Contact with and (suspected) exposure to other viral communicable diseases; Z91.19 Patient's noncompliance with other medical treatment and regimen; J45.909 Unspecified asthma, uncomplicated; Z99.81 Dependence on supplemental oxygen; Z85.89 Personal history of malignant neoplasm of other organs and systems; R77.8 Other specified abnormalities of plasma proteins; D63.8 Anemia in other chronic diseases classified elsewhere
CPT/HCPCS: 31500; 36415; 36556; 36600; 70450; 71045; 71250; 80048; 80053; 80202; 80305; 81001; 82310; 82550; 82728; 82803; 82948; 83036; 83605; 83615; 83735; 83880; 84100; 84436; 84439; 84443; 84479; 84484; 85025; 85379; 85384; 85610; 85730; 86140; 87040; 87086; 87420; 87804; 90935; 92950; 93005; 94003; 94640; 96365; 96367; 96375; 99291; 99292; G0480; J0330; J0610; J1644; J1815; J2250; J2370; J2543; J2704; J3370; J3490; J7030; J7060; J7626; P9046; U0003